=== PATIENT | female | born 1970 | race Caucasian/White ===

== ENCOUNTER 2016-08-07 20:28 | Emergency (ER) | payer BC ==
[~2016-08-07] VITALS: Ht 170.2 cm; Wt 59.0 kg
[2016-08-07 20:30] VITALS: BP_SYST 115
[2016-08-07] MEDS ORDERED: DIPH-TET-PERTUS Vaccine 0.5 ML VIAL (ADACEL) I.M. ONE (20:45)
[2016-08-07 22:47] VITALS: BP_SYST 115
== END 2016-08-07 22:47 | disposition home or self-care (01) ==
LOC: SED 20:28
DX: S61.511A Laceration without foreign body of right wrist, initial encounter (principal); Z90.49 Acquired absence of other specified parts of digestive tract; W54.0XXA Bitten by dog, initial encounter; Y93.89 Activity, other specified; Y92.89 Other specified places as the place of occurrence of the external cause; Y99.8 Other external cause status
CPT/HCPCS: 90715; 99283